=== PATIENT | male | born 1975 | race Caucasian/White ===

== ENCOUNTER 2016-10-31 18:45 | Emergency (ER) | payer SELFPAY ==
[2016-10-31 19:06] VITALS: BP 155/111
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
[2016-10-31 19:41] LABS: Hematocrit 41 % (42-52); Hemoglobin 14.3 g/dl (14.0-18.0); Mean Corpuscular HGB Conc 35 g/dl (31-36); Mean Corpuscular Hemoglobin 32 pg (27-31); Mean Corpuscular Volume 93 fL (80-94); Mean Platelet Volume 9 um3 (7.4-10.4); Red Blood Count 4.41 10^6/ul (4.0-5.4); Red Cell Distribution Width 14 % (10.5-15); White Blood Count 5.8 10^3/ul (3.5-10.8)
[2016-10-31 19:56] LABS: Albumin 4.6 g/dL (3.2-5.2); BUN/Creatinine Ratio 23.1 (8-20); Calcium 9.6 mg/dL (8.6-10.3); EGFR African American 101.2 (>60); EGFR Non-African American 78.7 (>60); Globulin 2.7 g/dL (2-4); Potassium 3.9 mmol/L (3.5-5.0); Total Bilirubin 0.5 mg/dL (0.2-1.0); Total Protein 7.3 g/dL (6.4-8.9)
[2016-10-31] MEDS ORDERED: Ketorolac INJ* 30 MG/ML 1 ML VIAL IV PUSH ONE (19:56)
[2016-10-31] MEDS ORDERED: Iohexol 300* (CONTRAST) 10 ML SDV IV ONE (20:03)
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
== END 2016-10-31 21:57 | disposition home or self-care (01) ==
LOC: ED 18:45
DX: R07.89 Other chest pain (principal); M79.644 Pain in right finger(s); V89.2XXA Person injured in unspecified motor-vehicle accident, traffic, initial encounter; Y93.9 Activity, unspecified; Y92.9 Unspecified place or not applicable
CPT/HCPCS: 36415; 70450; 71260; 74177; 80053; 85025; 96374; 99282; J1885; Q9967